=== PATIENT | female | born 1970 | race Two or more races ===

== ENCOUNTER 2016-08-14 15:58 | Emergency (ER) | payer OTHER ==
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
== END 2016-08-14 18:09 | disposition home or self-care (01) ==
LOC: ER 15:58
DX: S63.502A Unspecified sprain of left wrist, initial encounter (principal); S20.219A Contusion of unspecified front wall of thorax, initial encounter; Z90.710 Acquired absence of both cervix and uterus; Z91.013 Allergy to seafood; V49.40XA Driver injured in collision with unspecified motor vehicles in traffic accident, initial encounter